=== PATIENT | male | born 1960 | race Hispanic/Latino ===

== ENCOUNTER 2018-07-27 14:13 | Emergency (ER) | payer MEDICAID ==
[2018-07-27 14:39] VITALS: BP 114/72
--- NOTE | 2018-07-27 20:50 | Emergency Department Report ---
ED Rash HPI - HPI Chief Complaint: Skin Rash Stated Complaint: SKIN INFECTION Time Seen by Provider: 07/27/18 20:43 Duration: 2 Days Location: Chest, Abdomen, Upper Extremities Suspected Cause: Unknown Rash Symptoms: Yes Itching, Yes Blistering, No Facial Swelling, No Tongue/Oral Swelling, No Breathing Difficulties, No Choking Sensation, No Wheezing/Dyspnea, No Peeling, No Fever, No Lightheaded, No Malaise, No Myalgias Severity: mild ED Review of Systems ROS: Stated complaint: SKIN INFECTION Other details as noted in HPI Constitutional: denies: chills, fever Eyes: denies: eye pain, eye discharge, vision change ENT: denies: ear pain, throat pain Respiratory: denies: cough, shortness of breath, wheezing Cardiovascular: denies: chest pain, palpitations Endocrine: no symptoms reported Gastrointestinal: denies: abdominal pain, nausea, diarrhea Genitourinary: denies: urgency, dysuria Musculoskeletal: as per HPI Skin: as per HPI, rash (bilateral hands trunk and abdomen), pruritus. denies: lesions ED Past Medical Hx - Past Medical History Hx Hypertension: Yes (when in pain or detoxing, no meds) Hx Psychiatric Treatment: Yes (bipolar disorder, substance abuse, PTSD) Additional medical history: broken collar bones, broken ribs, RLS - Surgical History Hx Appendectomy: Yes Additional Surgical History: bilateral knees 06/2016 and 04/2016, left shoulder, lower back, left kidney, facial trauma - Social History Smoking Status: Current Every Day Smoker Substance Use Type: None - Medications Home Medications: Home Medications Medication Instructions Recorded Confirmed Last Taken Type Citalopram [celeXA] 20 mg PO QDAY 08/25/16 08/25/16 Unknown History Omeprazole Magnesium [PriLOSEC Otc] 40 mg PO QDAY 08/25/16 08/25/16 Unknown History Quetiapine Fumarate [SEROquel] 50 mg PO QHS 08/25/16 08/25/16 Unknown History Sulfamethoxazole/Trimethoprim 1 each PO BID 10 Days #20 tablet 07/27/18 Unknown Rx [Bactrim DS TAB] Triamcinolone Aceton 0.1% (Nf) 1 applic TP BID #1 tube 07/27/18 Unknown Rx [Kenalog (NF)] diphenhydrAMINE [Benadryl CAP] 25 mg PO Q6HR PRN #30 capsule 07/27/18 Unknown Rx Rash Exam - Exam General: Vital signs noted. No distress. Alert and acting appropriately. HEENT: No Periorbital Edema, No Conjuctival Injection, No Chemosis, No Perioral Edema, No Tongue Edema, No Uvular Edema, No Compromised Airway, No Drooling Lungs: Yes Good Air Exchange, Yes Retractions, No Wheezes, No Ronchi, No Stridor , No Cough, No Labored Respirations, No Use of Accessory Muscles, No Other Abnormal Lung Sounds Heart: Yes Regular, No Murmur Skin: Yes Urticarial Rash, Yes Maculopapular Rash, Yes Excoriations, Yes Erythema, Yes Encrustations, No Morbilliform rash, No Bulla(e), No Weeping, No Tenderness, No Edema, No Other Other: Positive: Abdomen Normal, Neurologic Normal, Musculoskeletal Normal ED Course Vital Signs 07/27/18 14:34 Temperature 98.4 F Pulse Rate 82 Respiratory 20 Rate Blood Pressure 114/72 O2 Sat by Pulse 95 Oximetry ED Medical Decision Making - Medical Decision Making Patient presents with an atopic dermatitis history of same is recurring over the last 4 years . Generally treated with triamcinolone ointment and Benadryl patient has primary care daughter is taking care of of rash and primary care however cannot see to next week patient is out of triamcinolone. I should say he plan refill triamcinolone ointment Benadryl when necessary itching Bactrim for minor abscess Decadron patient will follow with PCP in 2-3 days patient verbalizes understanding and agreement with same patient DC to home in stable condition at this Critical care attestation.: If time is entered above; I have spent that time in minutes in the direct care of this critically ill patient, excluding procedure time. ED Disposition Clinical Impression: Cellulitis of skin Atopic dermatitis Qualifiers: Atopic dermatitis type: atopic neurodermatitis Qualified Code(s): L20.81 - Atopic neurodermatitis Disposition: DC-01 TO HOME OR SELFCARE Is pt being admited?: No Does the pt Need Aspirin: No Condition: Stable Instructions: Eczema (ED), Cellulitis (ED), Contact Dermatitis (ED) Prescriptions: diphenhydrAMINE [Benadryl CAP] 25 mg PO Q6HR PRN #30 capsule PRN Reason: Itching Sulfamethoxazole/Trimethoprim [Bactrim DS TAB] 1 each PO BID 10 Days #20 tablet Triamcinolone Aceton 0.1% (Nf) [Kenalog (NF)] 1 applic TP BID #1 tube Referrals: PRIMARY CARE,MD [Primary Care Provider] - 3-5 Days Forms: Work/School Release Form(ED) Time of Disposition: 20:58
[2018-07-27] MEDS ORDERED: DELTASONE PO ONE (20:57)
[2018-07-27] MEDS ORDERED: BACTRIM DS PO ONE (20:57)
[2018-07-27] MEDS ORDERED: BANOPHEN PO ONE (20:57)
[2018-07-27] MEDS ORDERED: BENADRYL PO ONE ×2 (21:05→21:06)
== END 2018-07-27 21:10 | disposition home or self-care (01) ==
LOC: ED 14:13
DX: L20.9 Atopic dermatitis, unspecified (principal); I10 Essential (primary) hypertension; F31.9 Bipolar disorder, unspecified; F19.10 Other psychoactive substance abuse, uncomplicated; F43.10 Post-traumatic stress disorder, unspecified; F17.200 Nicotine dependence, unspecified, uncomplicated; Z90.49 Acquired absence of other specified parts of digestive tract
CPT/HCPCS: 99282; J7512

== ENCOUNTER 2018-11-18 11:54 | Emergency (ER) | payer MEDICAID ==
[2018-11-18 12:03] VITALS: BP 158/80
--- NOTE | 2018-11-18 12:16 | Emergency Department Report ---
ED Abdominal Pain HPI - General Chief Complaint: Abdominal Pain Stated Complaint: GALLSTONES/PAIN Time Seen by Provider: 11/18/18 12:08 Source: patient Mode of arrival: Ambulatory Limitations: No Limitations - History of Present Illness Initial Comments: Mr. Kenny is a 58-year-old male who comes to the ER with right upper quadrant pain. He states that he believes this is gallstones. He denies nausea vomiting diarrhea. Patient does have past medical history of hepatitis C. He denies alcohol use. He does smoke 2 packs per week. He denies being on any home medications at present. He is followed by the [facility] in [place] by Dr Conrad. Complaint: abdominal pain -: Sudden Location: diffuse, RUQ Migration to: no migration Consistency: constant Improves With: medication Worsens With: medication Associated Symptoms: denies: nausea, vomiting, diarrhea, fever, chills, constipation, dysuria, hematemesis, hematochezia, melena, hematuria, anorexia, syncope - Related Data Previous Rx's Medication Instructions Recorded Last Taken Type Triamcinolone Aceton 0.1% (Nf) 1 applic TP BID #1 tube 07/27/18 Unknown Rx [Kenalog (NF)] Benztropine Mesylate 2 mg PO QHS #30 tablet 09/01/18 Unknown Rx FLUoxetine HCL [Fluoxetine HCl] 60 mg PO DAILY #30 capsule 09/01/18 Unknown Rx Lactulose [Cephulac] 20 gm PO QDAY #30 oral.liqd 09/01/18 Unknown Rx Nadolol [Corgard] 20 mg PO QDAY #30 tablet 09/01/18 Unknown Rx Pantoprazole [Protonix TAB] 40 mg PO BID #60 tablet 09/01/18 Unknown Rx QUEtiapine [SEROquel] 400 mg PO QHS #30 tablet 09/01/18 Unknown Rx Allergies Allergy/AdvReac Type Severity Reaction Status Date / Time erythromycin base Allergy Unknown Verified 08/22/16 15:07 ED Review of Systems ROS: Stated complaint: GALLSTONES/PAIN Other details as noted in HPI Comment: All other systems reviewed and negative Constitutional: denies: chills, fever Eyes: denies: eye pain ENT: denies: ear pain Respiratory: denies: cough, orthopnea Cardiovascular: denies: chest pain, palpitations Endocrine: denies: excessive sweating, flushing Gastrointestinal: as per HPI, abdominal pain. denies: nausea, vomiting, diarrhea, constipation, hematemesis, melena, hematochezia Genitourinary: denies: urgency, dysuria Musculoskeletal: denies: back pain Skin: denies: rash, lesions Neurological: denies: headache, weakness Psychiatric: denies: anxiety, depression Hematological/Lymphatic: denies: easy bleeding ED Past Medical Hx - Past Medical History Hx Hypertension: Yes (when in pain or detoxing, no meds) Hx Liver Disease: Yes (Hep C) Hx Seizures: Yes Hx Psychiatric Treatment: Yes (bipolar disorder, substance abuse, PTSD) Hx Asthma: No Hx COPD: No Additional medical history: broken collar bones, broken ribs, RLS - Surgical History Hx Appendectomy: Yes Additional Surgical History: bilateral knees 06/2016 and 04/2016, left shoulder, lower back, left kidney, facial trauma,esophagus - Social History Smoking Status: Current Every Day Smoker Substance Use Type: None - Medications Home Medications: Home Medications Medication Instructions Recorded Confirmed Last Taken Type Triamcinolone Aceton 0.1% (Nf) 1 applic TP BID #1 tube 07/27/18 08/26/18 Unknown Rx [Kenalog (NF)] Benztropine Mesylate 2 mg PO QHS #30 tablet 09/01/18 Unknown Rx FLUoxetine HCL [Fluoxetine HCl] 60 mg PO DAILY #30 capsule 09/01/18 Unknown Rx Lactulose [Cephulac] 20 gm PO QDAY #30 oral.liqd 09/01/18 Unknown Rx Nadolol [Corgard] 20 mg PO QDAY #30 tablet 09/01/18 Unknown Rx Pantoprazole [Protonix TAB] 40 mg PO BID #60 tablet 09/01/18 Unknown Rx QUEtiapine [SEROquel] 400 mg PO QHS #30 tablet 09/01/18 Unknown Rx ED Physical Exam - General Limitations: No Limitations General appearance: alert - Head Head exam: Present: atraumatic - Eye Eye exam: Present: normal appearance, PERRL Pupils: Present: normal accommodation - ENT ENT exam: Present: normal exam - Neck Neck exam: Present: normal inspection - Respiratory Respiratory exam: Present: normal lung sounds bilaterally - Cardiovascular Cardiovascular Exam: Present: regular rate - GI/Abdominal GI/Abdominal exam: Present: soft, normal bowel sounds. Absent: tenderness - Rectal Rectal exam: Present: deferred - Extremities Exam Extremities exam: Present: normal inspection, full ROM - Back Exam Back exam: Present: normal inspection, full ROM. Absent: tenderness, CVA tenderness (R), CVA tenderness (L) - Neurological Exam Neurological exam: Present: alert, oriented X3 - Psychiatric Psychiatric exam: Present: normal affect, normal mood - Skin Skin exam: Present: warm, dry, intact. Absent: normal color, rash ED Course Vital Signs 11/18/18 11:58 Temperature 97.8 F Pulse Rate 89 Respiratory 20 Rate Blood Pressure 158/80 O2 Sat by Pulse 96 Oximetry - Reevaluation(s) Reevaluation #1: 11/18/18 13:15 home meds rifaximan spironaldactone benztropine prozac ED Medical Decision Making - Lab Data Result diagrams: 11/18/18 12:34 11/18/18 12:34 - Medical Decision Making NO EVIDENCE OF BILIARY OBSTRUCTION LFT NORMAL CR NORMAL WBC N FOR PT NO FEVER AMBULATORY TAKING PO MEDICATED WITH MOTRIN AND DC HOME INSTRUCTED TO FOLLOW UP WITH DR CONRAD Labs 11/18/18 11/18/18 11/18/18 12:09 12:34 12:34 WBC 4.4 L RBC 4.62 Hgb 12.7 Hct 38.5 MCV 83 L MCH 28 MCHC 33 RDW 16.5 H Seg Neutrophils % Data Warehouse Manager Sodium 134 L Potassium 3.7 Chloride 100.5 Carbon Dioxide 19 L Anion Gap 18 BUN 9 Creatinine 0.6 L Estimated GFR > 60 BUN/Creatinine Ratio 15 Glucose 182 H Calcium 8.5 Total Bilirubin 0.70 AST 25 ALT 21 Alkaline Phosphatase 127 Total Protein 6.9 Albumin 3.9 Albumin/Globulin Ratio 1.3 Lipase 17 Urine Color Kell Urine Turbidity Clear Urine pH 6.0 Ur Specific [place] 1.021 Urine Protein <15 mg/dl Urine Glucose (UA) Neg Urine Ketones Neg Urine Blood Neg Urine Nitrite Neg Urine Bilirubin Neg Urine Urobilinogen 2.0 Ur Leukocyte Esterase Neg Urine WBC (Auto) 2.0 Urine RBC (Auto) 2.0 U Epithel Cells (Auto) < 1.0 Urine Mucus Few - Differential Diagnosis ro pancreatitis/choleycystitis Critical care attestation.: If time is entered above; I have spent that time in minutes in the direct care of this critically ill patient, excluding procedure time. ED Disposition Clinical Impression: Chronic abdominal pain Disposition: DC TO HOME OR SELFCARE Is pt being admited?: No Does the pt Need Aspirin: No Condition: Stable Instructions: Abdominal Pain (ED) Additional Instructions: FOLLOW UP WITH DR CONRAD DIET INSTRUCTED LOW FAT MEDS PER ROUTINE HYDRATE WELL WITH WATER LIVER FUNCTION IS NORMAL TODAY NORMAL BILIRUBUIN TODAY Referrals: PRIMARY CAREMD [Referring] - 3-5 Days FERNANDO MENDOZA MD [Primary Care Provider] - 3-5 Days Time of Disposition: 13:16
[2018-11-18 12:28] LABS: Bilirubin,Urine NEG (Negative); Blood,Urine NEG (Negative); Color,Urine Amber (Yellow); Mucus,Urine FEW /HPF; Protein,Urine <15 mg/dL mg/dL (Negative)
[2018-11-18 12:49] LABS: Hematocrit 38.5 % (35.5-45.6); Hemoglobin 12.7 gm/dl (11.8-15.2); Mean Corpuscular HGB Conc 33 % (32-34); Mean Corpuscular Volume 83 fl (84-94); Red Blood Count 4.62 M/mm3 (3.65-5.03); Red Cell Distribution Width 16.5 % (13.2-15.2)
[2018-11-18] MEDS ORDERED: IBUPROFEN PO ONE (13:02)
[2018-11-18 13:09] LABS: Alanine Aminotransferase 21 units/L (7-56); Albumin 3.9 g/dL (3.9-5); BUN/Creatinine Ratio 15; Blood Urea Nitrogen 9 mg/dL (9-20); Calcium 8.5 mg/dL (8.4-10.2); Hemolysis Index 7
[2018-11-18 13:28] LABS: Anisocytosis 1+; Eosinophils % (Manual) 0 % (0.0-4.3); Platelet Estimate Consistent w Auto; Poikilocytosis 1+; Total Cells Counted 100
[2018-11-18 13:29] LABS: Platelet Count 92 K/mm3 (140-440)
== END 2018-11-18 13:48 | disposition home or self-care (01) ==
LOC: ED 11:54
DX: R10.11 Right upper quadrant pain (principal); G89.29 Other chronic pain; F17.210 Nicotine dependence, cigarettes, uncomplicated; I10 Essential (primary) hypertension; F31.9 Bipolar disorder, unspecified; F43.10 Post-traumatic stress disorder, unspecified; Z90.49 Acquired absence of other specified parts of digestive tract; Z96.653 Presence of artificial knee joint, bilateral; Z88.1 Allergy status to other antibiotic agents
CPT/HCPCS: 36415; 80053; 81001; 83690; 85007; 85025; 99283

== ENCOUNTER 2018-12-14 13:15 | Outpatient (CLI) | payer MEDICAID ==
--- NOTE | 2018-12-14 22:53 | XRay Report ---
FINAL REPORT EXAM: XR KNEE BILAT 3V HISTORY: PAIN TECHNIQUE: Three views of the bilateral knees, 6 views total PRIORS: None. FINDINGS: Right knee: There is a knee prosthesis in place. Alignment is anatomic. There is no evidence of hardw are complication or acute fracture. The soft tissues are unremarkable. Left knee: There is a knee prosthesis in place. Alignment is anatomic. There is no evidence of hardwa re complication or acute fracture. There is osteophyte formation of the posterior patella. The soft tissues are unremarkable. IMPRESSION: Bilateral knee prostheses. No evidence of hardware complication or acute fracture.
--- NOTE | 2018-12-14 23:53 | XRay Report ---
FINAL REPORT EXAM: XR SHOULDER 2+V LT HISTORY: PAIN TECHNIQUE: 4 views of the left shoulder PRIORS: None. FINDINGS: The glenohumeral and acromioclavicular joints are normally aligned. The bones are normally mineralize d. The soft tissues are unremarkable. IMPRESSION: Normal left shoulder.
== END 2018-12-14 13:16 | disposition home or self-care (01) ==
LOC: XRAY 13:15
PROVIDERS: ATTEND Physical Medicine & Rehabilitation
DX: M25.512 Pain in left shoulder (principal); M54.5 Low back pain; I10 Essential (primary) hypertension; Z96.651 Presence of right artificial knee joint; Z90.49 Acquired absence of other specified parts of digestive tract; Z87.891 Personal history of nicotine dependence

== ENCOUNTER 2019-01-12 09:03 | Day surgery (SDC) | payer MEDICAID ==
[~2019-01-12 09:03] MED LIST: NACL 0.9% 1000 ML 1,000 ML IV SCH
--- NOTE | 2019-01-12 10:57 | Anesthesia Day of Surgery ---
Anesthesia Day of Surgery - Day of Surgery Patient Examined: Yes Patient H&P Reviewed: Yes Patient is NPO: Yes
--- NOTE | 2019-01-12 10:57 | Anesthesia Consultation ---
Anesthesia Consult and Med Hx Date of service: 01/12/19 - Airway Anesthetic Teeth Evaluation: Edentulous ROM Head & Neck: Adequate Mental/Hyoid Distance: Adequate Mallampati Class: Class II Intubation Access Assessment: Probably Good - Pre-Operative Health Status ASA Pre-Surgery Classification: ASA4 Proposed Anesthetic Plan: MAC - Pulmonary Hx Smoking: Yes (smokes for 40 years) Hx Asthma: No Hx Respiratory Symptoms: No SOB: No COPD: No Hx Pneumonia: Yes - Cardiovascular System Hx Hypertension: Yes (when in pain or detoxing, no meds) - Central Nervous System Hx Seizures: Yes Hx Psychiatric Problems: Yes (anxiety/depression) - Gastrointestinal Hx Ulcer: Yes (GASTRIC) - Endocrine Hx Cirrhosis: Yes Hx Liver Disease: Yes (Hep C) - Other Systems Hx Alcohol Use: Yes Hx Substance Use: Yes (IV drug)
[2019-01-12] MEDS ORDERED: DIPRIVAN 10 MG/ML IV ONE ×2 (11:00→13:41)
--- NOTE | 2019-01-12 11:18 | Short Stay Summary ---
Short Stay Documentation Date of service: 01/12/19 Narrative H&P: The patient presents for EGD and possible banding of esophageal varices. He has cirrhosis secondary to ETOH and hep C and has a prior history of bleeding from esophageal varices. - History Past Medical History: GERD, hepatitis, liver disease (cirrhosis) Past Surgical History: Other (bilateral knee replacements) Social history: Lives alone, alcohol abuse (prior heavy ETOH use), IV drug use (prior IVDU) - Allergies and Medications Current Medications: Allergies erythromycin base Allergy (Verified 08/22/16 15:07) Unknown Home Medications Medication Instructions Recorded Confirmed Last Taken Type Omeprazole 40 mg PO DAILY 01/11/19 01/12/19 01/11/19 History Xifaxan 550 mg PO BID 01/11/19 01/12/19 01/11/19 History Claritin 1 tab PO DAILY 01/12/19 01/12/19 01/11/19 History Furosemide [Lasix TAB] 1 tab PO DAILY 01/12/19 01/12/19 01/11/19 History Percocet 7.5/325 mg 1 tab PO BID PRN 01/12/19 01/12/19 01/11/19 History Prozac 60 mg PO DAILY 01/12/19 01/12/19 01/11/19 History Vistaril 10 mg PO BID 01/12/19 01/12/19 01/11/19 History traMADol 2 mg PO BID 01/12/19 01/12/19 01/11/19 History Active Medications Sodium Chloride (Nacl 0.9% 1000 Ml) 1,000 mls @ 50 mls/hr IV DIRECT OMER Last Admin: 01/12/19 09:45 Dose: 50 mls/hr Documented by: - Physical exam General appearance: no acute distress, well-nourished Integumentary: no rash, no growths, no abnormal pigmentation HEENT: Atraumatic, PERRLA, EOMI, Mucous membr. moist/pink Lungs: Clear to auscultation, Normal air movement Breasts: deferred Heart: Regular rate, Normal S1, Normal S2, No murmurs Gastrointestinal: normoactive bowel sounds, no tenderness, no distended, no masses, no guarding, no organomegaly, no obese, other (1 plus ascites. ballotable liver) Male Genitourinary: deferred Rectal Exam: deferred Extremities: no ischemia, pulses intact, pulses symmetrical, No edema, normal temperature, normal color, Full ROM Neurological: Normal gait, Normal speech, Strength at 5/5 X4 ext, Normal tone, Sensation intact, Cranial nerves 3-12 NL - Brief post op/procedure progress note Date of procedure: 01/12/19 Findings: see dictated report Estimated blood loss: none Pathology: none Condition: stable - Disposition Condition at discharge: Good Disposition: DC-01 TO HOME OR SELFCARE - Discharge Diagnoses (1) Cirrhosis of liver with ascites Status: Acute (2) Esophageal varices Status: Acute (3) Hepatitis C Status: Acute (4) History of hepatitis Status: Acute Short Stay Discharge Plan Activity: other (no driving for 24 hours) Weight Bearing Status: Full Weight Bearing Diet: other (soft mechanical diet for 24 hours) Follow up with: FERNANDO MENDOZA MD [Primary Care Provider] - 7 Days
--- NOTE | 2019-01-12 11:24 | Operative Report ---
Operative Report Operative Report: Date of procedure: 01/12/2019 Procedure: Esophagogastroduodenoscopy with banding 4 of esophageal varices. Preprocedure diagnosis: History of esophageal varices with bleeding in the past. Now for surveillance study. Post procedure diagnosis: 3+ esophageal varices. Mild portal hypertension gastropathy without discrete gastric varices. Endoscopist: Dr. Johnson Anesthesia: Monitored anesthesia care per anesthesia department Medications: Propofol per anesthesia Estimated blood loss: 0 After careful discussion of the nature and purpose of the procedure as well as details the technique risks benefits and alternatives consent was obtained. The patient was placed in the left lateral decubitus position and medicated per anesthesia. The tip of the Sonalight EQ 570 video scope was passed per orum under direct vision into the esophagus and advanced into the stomach and descending duodenum. The descending duodenum the duodenal bulb and pylorus were symmetrical and normal. The scope was withdrawn into the stomach and the stomach then gently insufflated with air. The antrum was normal. The stomach was further insufflated and the scope was then retroflexed and partially withdrawn. The cardia and fundus revealed mild portal hypertension gastropathy without discrete varices. The body of the stomach was within normal limits and easily distensible.The scope was then withdrawn in the forward position. The esophagogastric junction was at 40 cm. 3+ esophageal varices are present in the distal third. There were no stigmata of recent bleeding. The scope was then withdrawn and the banding device loaded. The scope was reintroduced by mouth under direct vision into the esophagus and advanced distally. 4 bands were placed in a circumferential fashion in the distal 5 cm of the esophagus. No bleeding was encountered. The procedure was was well tolerated and the patient was observed in recovery. Impressions: 3+ distal esophageal varices. Status post banding 4. Mild portal hypertension gastropathy without discrete gastric varices. Plan: We will start beta toy therapy. Repeat EGD and possible banding in 2- 3 months until varices are obliterated.. Electronically signed: Leoncio Johnson MD
[2019-01-12 12:52] VITALS: BP 109/56
== END 2019-01-12 09:04 | disposition home or self-care (01) ==
LOC: GIO 09:03
PROVIDERS: ATTEND Internal Medicine Gastroenterology
DX: I85.00 Esophageal varices without bleeding (principal); K76.6 Portal hypertension; K31.89 Other diseases of stomach and duodenum; F17.210 Nicotine dependence, cigarettes, uncomplicated; I10 Essential (primary) hypertension; F33.9 Major depressive disorder, recurrent, unspecified; F41.9 Anxiety disorder, unspecified; M19.90 Unspecified osteoarthritis, unspecified site; Z96.653 Presence of artificial knee joint, bilateral; Z72.89 Other problems related to lifestyle; Z98.890 Other specified postprocedural states; Z79.899 Other long term (current) drug therapy; Z86.19 Personal history of other infectious and parasitic diseases; Z90.49 Acquired absence of other specified parts of digestive tract; Z88.8 Allergy status to other drugs, medicaments and biological substances
CPT/HCPCS: 43244; J2704; J7030

== ENCOUNTER 2019-02-12 12:07 | Emergency (ER) | payer MEDICAID ==
--- NOTE | 2019-02-12 13:18 | Emergency Department Report ---
ED General Adult HPI - General Chief complaint: Weakness Stated complaint: WEAKNESS/SOB Time Seen by Provider: 02/12/19 12:35 Source: patient, EMS Mode of arrival: Stretcher Limitations: No Limitations - History of Present Illness Initial comments: 58-year-old male in with a past medical history of hypertension, hepatitis C, bipolar disorder, polysubstance abuse, PTSD, and bleeding esophageal varices requiring banding presents to the hospital from [facility] with complaints of rash. Patient states he is easily bruising and has bruising all over his extremities with pruritus. He denies melena, hematochezia, or hematemesis. He states he was admitted here 01/12/2019. Among his discharge medications included Xifaxan and nadolol. Patient has a couple tablets of Xifaxan left and is out of nadolol. He stresses concerns that his insurance might not cover additional Xifaxan refills and knees might need all. He was unable to be seen by his GI doctor Dr. Montez because his appointment was canceled because Dr. Montez was sick. Severity scale (0 -10): 0 - Related Data Home Medications Medication Instructions Recorded Confirmed Last Taken Omeprazole 40 mg PO DAILY 01/11/19 01/12/19 01/11/19 Xifaxan 550 mg PO BID 01/11/19 01/12/19 01/11/19 Claritin 1 tab PO DAILY 01/12/19 01/12/19 01/11/19 Furosemide [Lasix TAB] 1 tab PO DAILY 01/12/19 01/12/19 01/11/19 Percocet 7.5/325 mg 1 tab PO BID PRN 01/12/19 01/12/19 01/11/19 Prozac 60 mg PO DAILY 01/12/19 01/12/19 01/11/19 Vistaril 10 mg PO BID 01/12/19 01/12/19 01/11/19 traMADol 2 mg PO BID 01/12/19 01/12/19 01/11/19 Allergies Allergy/AdvReac Type Severity Reaction Status Date / Time erythromycin base Allergy Unknown Verified 08/22/16 15:07 ED Review of Systems ROS: Stated complaint: WEAKNESS/SOB Other details as noted in HPI Comment: All other systems reviewed and negative ED Past Medical Hx - Past Medical History Hx Hypertension: Yes (when in pain or detoxing, no meds) Hx GERD: Yes Hx Liver Disease: Yes (Hep C) Hx Arthritis: Yes Hx Seizures: Yes Hx Psychiatric Treatment: Yes (bipolar disorder, substance abuse, PTSD) Hx Asthma: No Hx COPD: No Additional medical history: broken collar bones, broken ribs, RLS - Surgical History Hx Appendectomy: Yes Additional Surgical History: bilateral knees 06/2016 and 04/2016, left shoulder, lower back, left kidney, facial trauma,esophagus - Social History Smoking Status: Current Every Day Smoker Substance Use Type: Prescribed - Medications Home Medications: Home Medications Medication Instructions Recorded Confirmed Last Taken Type Omeprazole 40 mg PO DAILY 01/11/19 01/12/19 01/11/19 History Xifaxan 550 mg PO BID 01/11/19 01/12/19 01/11/19 History Claritin 1 tab PO DAILY 01/12/19 01/12/19 01/11/19 History Furosemide [Lasix TAB] 1 tab PO DAILY 01/12/19 01/12/19 01/11/19 History Percocet 7.5/325 mg 1 tab PO BID PRN 01/12/19 01/12/19 01/11/19 History Prozac 60 mg PO DAILY 01/12/19 01/12/19 01/11/19 History Vistaril 10 mg PO BID 01/12/19 01/12/19 01/11/19 History traMADol 2 mg PO BID 01/12/19 01/12/19 01/11/19 History ED Physical Exam - General Limitations: No Limitations - Other Other exam information: General: No limitations, patient is alert in no acute distress Head exam: Atraumatic, normocephalic Eyes exam: Normal appearance ENT: Moist mucous membrane Neck exam: Normal inspection, full range of motion, no meningismus nontender Respiratory exam: Clear to auscultation bilateral, no wheezes, rales, crackles Cardiovascular: Normal rate and rhythm, normal heart sounds Abdomen: Soft, nondistended, and nontender, with normal bowel sounds, no rebound, or guarding Extremity: Full range of motion normal inspection no deformity Back: Normal Inspection, full range of motion, no tenderness Neurologic: Alert, oriented x3, cranial nerves intact, no motor or sensory deficit Psychiatric: normal affect, normal mood Skin: Patient has generalized bruising to extremities that is nonblanching. No warmth or erythema. Generalized pruritus noted ED Course Vital Signs 02/12/19 02/12/19 13:00 13:18 Temperature 98.4 F Pulse Rate 74 Respiratory 13 13 Rate Blood Pressure 137/61 [Right] O2 Sat by Pulse 96 95 Oximetry - Consultations Consultation #1: 02/12/19 14:46 case d/w Dr Worthington stone pol[facility] GI for Dr Montez, will review pt's med record and call in appropriate meds to his pharmacy. ED Medical Decision Making - Lab Data Result diagrams: 02/12/19 13:01 02/12/19 13:01 Lab Results 02/12/19 02/12/19 02/12/19 Range/Units 13:01 13:01 13:01 WBC 16.5 H (4.5-11.0) K/mm3 RBC 4.66 (3.65-5.03) M/mm3 Hgb 12.6 (11.8-15.2) gm/dl Hct 37.8 (35.5-45.6) % MCV 81 L (84-94) fl MCH 27 L (28-32) pg MCHC 33 (32-34) % RDW 16.0 H (13.2-15.2) % Plt Count 161 (140-440) K/mm3 Lymph % (Auto) 8.9 L (13.4-35.0) % [place] % (Auto) 12.3 H (0.0-7.3) % Eos % (Auto) 0.2 (0.0-4.3) % Baso % (Auto) 0.3 (0.0-1.8) % Lymph # 1.5 (1.2-5.4) K/mm3 [place] # 2.0 H (0.0-0.8) K/mm3 Eos # 0.0 (0.0-0.4) K/mm3 Baso # 0.0 (0.0-0.1) K/mm3 Seg Neutrophils % 78.3 H (40.0-70.0) % Seg Neutrophils # 12.9 H (1.8-7.7) K/mm3 PT 15.7 H (12.2-14.9) Sec. INR 1.17 H (0.87-1.13) APTT 32.4 (24.2-36.6) Sec. Sodium 134 L (137-145) mmol/L Potassium 4.2 (3.6-5.0) mmol/L Chloride 100.0 (98-107) mmol/L Carbon Dioxide 21 L (22-30) mmol/L Anion Gap 17 mmol/L BUN 23 H (9-20) mg/dL Creatinine 0.8 (0.8-1.5) mg/dL Estimated GFR > 60 ml/min BUN/Creatinine Ratio 29 % Glucose 99 (75-100) mg/dL Calcium 9.0 (8.4-10.2) mg/dL Total Bilirubin 0.90 (0.1-1.2) mg/dL AST 41 H (5-40) units/L ALT 36 (7-56) units/L Alkaline Phosphatase 134 H (35-129) units/L Ammonia (25-60) umol/L Total Protein 6.9 (6.3-8.2) g/dL Albumin 3.8 L (3.9-5) g/dL Albumin/Globulin Ratio 1.2 % Urine Color (Yellow) Urine Turbidity (Clear) Urine pH (5.0-7.0) Ur Specific [place] (1.003-1.030) Urine Protein (Negative) mg/dL Urine Glucose (UA) (Negative) mg/dL Urine Ketones (Negative) mg/dL Urine Blood (Negative) Urine Nitrite (Negative) Urine Bilirubin (Negative) Urine Urobilinogen (<2.0) mg/dL Ur Leukocyte Esterase (Negative) Urine WBC (Auto) (0.0-6.0) /HPF Urine RBC (Auto) (0.0-6.0) /HPF U Epithel Cells (Auto) (0-13.0) /HPF Urine Mucus /HPF 02/12/19 02/12/19 Range/Units 13:01 14:34 WBC (4.5-11.0) K/mm3 RBC (3.65-5.03) M/mm3 Hgb (11.8-15.2) gm/dl Hct (35.5-45.6) % MCV (84-94) fl MCH (28-32) pg MCHC (32-34) % RDW (13.2-15.2) % Plt Count (140-440) K/mm3 Lymph % (Auto) (13.4-35.0) % [place] % (Auto) (0.0-7.3) % Eos % (Auto) (0.0-4.3) % Baso % (Auto) (0.0-1.8) % Lymph # (1.2-5.4) K/mm3 [place] # (0.0-0.8) K/mm3 Eos # (0.0-0.4) K/mm3 Baso # (0.0-0.1) K/mm3 Seg Neutrophils % (40.0-70.0) % Seg Neutrophils # (1.8-7.7) K/mm3 PT (12.2-14.9) Sec. INR (0.87-1.13) APTT (24.2-36.6) Sec. Sodium (137-145) mmol/L Potassium (3.6-5.0) mmol/L Chloride (98-107) mmol/L Carbon Dioxide (22-30) mmol/L Anion Gap mmol/L BUN (9-20) mg/dL Creatinine (0.8-1.5) mg/dL Estimated GFR ml/min BUN/Creatinine Ratio % Glucose (75-100) mg/dL Calcium (8.4-10.2) mg/dL Total Bilirubin (0.1-1.2) mg/dL AST (5-40) units/L ALT (7-56) units/L Alkaline Phosphatase (35-129) units/L Ammonia 74.0 H (25-60) umol/L Total Protein (6.3-8.2) g/dL Albumin (3.9-5) g/dL Albumin/Globulin Ratio % Urine Color Yellow (Yellow) Urine Turbidity Clear (Clear) Urine pH 5.0 (5.0-7.0) Ur Specific [place] 1.029 (1.003-1.030) Urine Protein <15 mg/dl (Negative) mg/dL Urine Glucose (UA) Neg (Negative) mg/dL Urine Ketones Neg (Negative) mg/dL Urine Blood Neg (Negative) Urine Nitrite Neg (Negative) Urine Bilirubin Neg (Negative) Urine Urobilinogen < 2.0 (<2.0) mg/dL Ur Leukocyte Esterase Neg (Negative) Urine WBC (Auto) < 1.0 (0.0-6.0) /HPF Urine RBC (Auto) 2.0 (0.0-6.0) /HPF U Epithel Cells (Auto) < 1.0 (0-13.0) /HPF Urine Mucus Few /HPF - Radiology Data Radiology results: report reviewed ROUTINE CHEST, TWO VIEWS: HISTORY: Leukocytosis. The trachea, heart, mediastinal contour, lung campo and bony thorax are unremarkable. Patchy infiltrate in the lingula has resolved since 08/30/18. IMPRESSION: Unremarkable chest x-ray. - Medical Decision Making Patient complains of bruises or rash. No significant coagulopathy or anemia noted. Platelet count normal. Patient does present with a mild leukocytosis without identifiable source of fever or infectious symptoms. Chest x-ray and urine unremarkable. Patient is stable in the ED without distress. Patient did receive a dose of lactulose for mild ammonia elevation. Case discussed with GI who will review patient's Manzon: Needed prescriptions. - Differential Diagnosis thrombocytopenia, coagulopathy, infection, elevated bilirubin, allergic emma Critical Care Time: No Critical care attestation.: If time is entered above; I have spent that time in minutes in the direct care of this critically ill patient, excluding procedure time. ED Disposition Clinical Impression: Hepatitis C, Ecchymosis, Increased ammonia level, Liver cirrhosis Disposition: - TO HOME OR SELFCARE Is pt being admited?: No Does the pt Need Aspirin: No Condition: Stable Instructions: Cirrhosis (ED), Viral Hepatitis C (ED), Contusion in Adults (ED) Additional Instructions: Take the medication as prescribed. Follow up with your doctor or the clinic/doctor provided. Return if symptoms worsen as indicated by your discharge instructions. Your case was discussed with Dr. Worthignton one of Dr Abdul's partners. He will call in your appropriate medication to your pharmacy and recommends rescheduling of your appointment. Referrals: ALEKSANDRA CORBIN MD [Primary Care Provider] - 3-5 Days YONY MONTEZ MD [Staff Physician] - 3-5 Days Time of Disposition: 14:53
[2019-02-12 13:20] LABS: Basophils % (Auto) 0.3 % (0.0-1.8); Eosinophils % (Auto) 0.2 % (0.0-4.3); Hematocrit 37.8 % (35.5-45.6); Hemoglobin 12.6 gm/dl (11.8-15.2); Lymphocytes # (Auto) 1.5 K/mm3 (1.2-5.4); Lymphocytes % (Auto) 8.9 % (13.4-35.0); Mean Corpuscular HGB Conc 33 % (32-34); Mean Corpuscular Volume 81 fl (84-94); Monocytes % (Auto) 12.3 % (0.0-7.3); Platelet Count 161 K/mm3 (140-440); Red Blood Count 4.66 M/mm3 (3.65-5.03)
[2019-02-12 13:30] LABS: INR 1.17 (0.87-1.13)
[2019-02-12 13:31] LABS: Partial Thromboplastin Time 32.4 Sec. (24.2-36.6)
[2019-02-12 13:36] LABS: Alanine Aminotransferase 36 units/L (7-56); Albumin 3.8 g/dL (3.9-5); BUN/Creatinine Ratio 29; Blood Urea Nitrogen 23 mg/dL (9-20); Hemolysis Index 4
[2019-02-12] MEDS ORDERED: CEPHULAC PO ONE (13:54)
--- NOTE | 2019-02-12 14:15 | XRay Report ---
ROUTINE CHEST, TWO VIEWS: HISTORY: Leukocytosis. The trachea, heart, mediastinal contour, lung campo and bony thorax are unremarkable. Patchy infiltrate in the lingula has resolved since 08/30/18. IMPRESSION: Unremarkable chest x-ray.
[2019-02-12 14:46] LABS: Bilirubin,Urine NEG (Negative); Blood,Urine NEG (Negative); Color,Urine Yellow (Yellow); Mucus,Urine FEW /HPF; Protein,Urine <15 mg/dL mg/dL (Negative); Urobilinogen,Urine < 2.0 mg/dL (<2.0); WBC,Urine < 1.0 /HPF (0.0-6.0)
[2019-02-12 15:19] VITALS: BP 111/54
== END 2019-02-12 15:25 | disposition home or self-care (01) ==
LOC: ED 12:07
DX: K74.60 Unspecified cirrhosis of liver (principal); K75.9 Inflammatory liver disease, unspecified; E72.20 Disorder of urea cycle metabolism, unspecified; S80.12XA Contusion of left lower leg, initial encounter; S80.11XA Contusion of right lower leg, initial encounter; S60.222A Contusion of left hand, initial encounter; S60.221A Contusion of right hand, initial encounter; I10 Essential (primary) hypertension; K21.9 Gastro-esophageal reflux disease without esophagitis; M19.90 Unspecified osteoarthritis, unspecified site; F17.200 Nicotine dependence, unspecified, uncomplicated; Z88.1 Allergy status to other antibiotic agents; X58.XXXA Exposure to other specified factors, initial encounter; Y93.89 Activity, other specified; Y92.89 Other specified places as the place of occurrence of the external cause; Y99.8 Other external cause status
CPT/HCPCS: 36415; 71046; 80053; 81001; 82140; 85025; 85610; 85730; 99284

== ENCOUNTER 2019-03-05 13:50 | Emergency (ER) | payer MEDICAID ==
[2019-03-05 14:07] VITALS: BP 121/59
--- NOTE | 2019-03-05 14:08 | Emergency Department Report ---
Blank Doc - Documentation Documentation: 58 y/o male comes in for left knee pain. Denies any injury. Knee replacement 3 years ago at [facility], [place]. Started having pain last night.
--- NOTE | 2019-03-05 15:53 | XRay Report ---
XRAY LEFT KNEE 3 VIEWS: 03/05/19 13:50:00 CLINICAL: Pain and swelling. COMPARISON: 12/14/18 FINDINGS: Status post total joint replacement with normal appearance of the prosthesis. No apparent loosening of the prosthesis. Opacification of the suprapatellar bursa has developed since the last exam. There is also moderate soft tissue edema of the anterior lower thigh. No soft tissue air. IMPRESSION: New inflammatory changes in the anterior soft tissues of the distal thigh. Suspect a large joint effusion. No evidence of gas producing infection. Normal appearance of the joint prosthesis.
--- NOTE | 2019-03-05 16:21 | Emergency Department Report ---
ED Extremity Problem HPI - General Chief complaint: Extremity Problem,Nontraumatic Stated complaint: L KNEE PAIN Time Seen by Provider: 03/05/19 15:04 Source: patient, EMS Mode of arrival: Wheelchair Limitations: Physical Limitation - History of Present Illness Initial comments: 58 y/o male comes in for left knee pain. Knee replacement 3 years ago at [facility]. Started having pain last night after nearly falling on that side. No fever, chills or night sweats. Has not taking any medications for symptoms. MD Complaint: extremity pain - Related Data Home Medications Medication Instructions Recorded Confirmed Last Taken Omeprazole 40 mg PO DAILY 01/11/19 01/12/19 01/11/19 Xifaxan 550 mg PO BID 01/11/19 01/12/19 01/11/19 Claritin 1 tab PO DAILY 01/12/19 01/12/19 01/11/19 Furosemide [Lasix TAB] 1 tab PO DAILY 01/12/19 01/12/19 01/11/19 Percocet 7.5/325 mg 1 tab PO BID PRN 01/12/19 01/12/19 01/11/19 Prozac 60 mg PO DAILY 01/12/19 01/12/19 01/11/19 Vistaril 10 mg PO BID 01/12/19 01/12/19 01/11/19 traMADol 2 mg PO BID 01/12/19 01/12/19 01/11/19 Allergies Allergy/AdvReac Type Severity Reaction Status Date / Time erythromycin base Allergy Unknown Verified 08/22/16 15:07 ED Review of Systems ROS: Stated complaint: L KNEE PAIN Other details as noted in HPI Comment: All other systems reviewed and negative Respiratory: denies: cough, orthopnea Musculoskeletal: joint swelling ED Past Medical Hx - Past Medical History Hx Hypertension: Yes (when in pain or detoxing, no meds) Hx GERD: Yes Hx Liver Disease: Yes (Hep C) Hx Arthritis: Yes Hx Seizures: Yes Hx Psychiatric Treatment: Yes (bipolar disorder, substance abuse, PTSD) Hx Asthma: No Hx COPD: No Additional medical history: broken collar bones, broken ribs, RLS - Surgical History Hx Appendectomy: Yes Additional Surgical History: bilateral knees 06/2016 and 04/2016, left shoulder, lower back, left kidney, facial trauma,esophagus - Social History Smoking Status: Current Every Day Smoker Substance Use Type: None - Medications Home Medications: Home Medications Medication Instructions Recorded Confirmed Last Taken Type Omeprazole 40 mg PO DAILY 01/11/19 01/12/19 01/11/19 History Xifaxan 550 mg PO BID 01/11/19 01/12/19 01/11/19 History Claritin 1 tab PO DAILY 01/12/19 01/12/19 01/11/19 History Furosemide [Lasix TAB] 1 tab PO DAILY 01/12/19 01/12/19 01/11/19 History Percocet 7.5/325 mg 1 tab PO BID PRN 01/12/19 01/12/19 01/11/19 History Prozac 60 mg PO DAILY 01/12/19 01/12/19 01/11/19 History Vistaril 10 mg PO BID 01/12/19 01/12/19 01/11/19 History traMADol 2 mg PO BID 01/12/19 01/12/19 01/11/19 History ED Physical Exam - General Limitations: Physical Limitation General appearance: alert, in no apparent distress - Head Head exam: Present: atraumatic, normocephalic - Eye Eye exam: Present: normal appearance, PERRL, EOMI Pupils: Present: normal accommodation - ENT ENT exam: Present: normal exam, normal orophraynx - Neck Neck exam: Present: normal inspection - Respiratory Respiratory exam: Present: normal lung sounds bilaterally - Cardiovascular Cardiovascular Exam: Present: regular rate, normal rhythm - GI/Abdominal GI/Abdominal exam: Present: soft - Extremities Exam Extremities exam: Present: joint swelling (left knee swelling, no redness, no warmth. No sign of septic joint.) ED Course Vital Signs 03/05/19 14:02 Temperature 98.6 F Pulse Rate 84 Respiratory 18 Rate Blood Pressure 121/59 O2 Sat by Pulse 95 Oximetry ED Medical Decision Making - Medical Decision Making Swelling likely due to the strain of almost falling, and catching himself on that side, already weaken knee. Effusion noted on x-ray, however no warmth, no fever, patient advised to follow-up with orthopedic. Return to ED if symptoms worsen. Critical care attestation.: If time is entered above; I have spent that time in minutes in the direct care of this critically ill patient, excluding procedure time. ED Disposition Clinical Impression: Knee pain, acute Qualifiers: Laterality: left Qualified Code(s): M25.562 - Pain in left knee Disposition: DC-01 TO HOME OR SELFCARE Is pt being admited?: No Does the pt Need Aspirin: No Condition: Stable Instructions: Knee Effusion (ED) Referrals: PRIMARY CARE, [Primary Care Provider] - 3-5 Days NIRALI MATHUR MD [Staff Physician] - 3-5 Days
== END 2019-03-05 16:31 | disposition home or self-care (01) ==
LOC: ED 13:50
DX: M25.562 Pain in left knee (principal); I10 Essential (primary) hypertension; K21.9 Gastro-esophageal reflux disease without esophagitis; M19.90 Unspecified osteoarthritis, unspecified site; F17.200 Nicotine dependence, unspecified, uncomplicated; Z86.19 Personal history of other infectious and parasitic diseases; Z88.1 Allergy status to other antibiotic agents; Z90.49 Acquired absence of other specified parts of digestive tract
CPT/HCPCS: 99284

== ENCOUNTER 2019-11-09 09:50 | Day surgery (SDC) | payer MEDICAID ==
[2019-11-09] MEDS ORDERED: SODIUM CHLORIDE 0.9% 1000 ML 1,000 ML IV SCH (10:00)
--- NOTE | 2019-11-09 10:49 | Anesthesia Consultation ---
Anesthesia Consult and Med Hx Date of service: 11/09/19 - Airway Anesthetic Teeth Evaluation: Dentures ROM Head & Neck: Adequate Mental/Hyoid Distance: Adequate Mallampati Class: Class II Intubation Access Assessment: Probably Good - Pulmonary Exam CTA: Yes - Cardiac Exam Cardiac Exam: RRR - Pre-Operative Health Status ASA Pre-Surgery Classification: ASA3 Proposed Anesthetic Plan: MAC - Pulmonary Hx Smoking: Yes (smokes for 40 years) Hx Asthma: No Hx Respiratory Symptoms: No SOB: No COPD: Yes Hx Pneumonia: Yes Hx Sleep Apnea: No - Cardiovascular System Hx Hypertension: Yes (when in pain or detoxing, no meds) - Central Nervous System Hx Seizures: Yes Hx Psychiatric Problems: Yes (anxiety/depression/Bipolar Disorder) - Gastrointestinal Hx Ulcer: Yes (GASTRIC) Hx Gastroesophageal Reflux Disease: Yes - Endocrine Hx Renal Disease: No Hx Cirrhosis: Yes Hx Liver Disease: Yes (Hep C) - Hematic Hx Anemia: Yes - Other Systems Hx Alcohol Use: Yes Hx Substance Use: Yes (IV drug) Hx Obesity: Yes (BMI 38) - Additional Comments Anesthesia Medical History Comments: Denies anesthesia related complications
--- NOTE | 2019-11-09 10:50 | Anesthesia Day of Surgery ---
Anesthesia Day of Surgery - Day of Surgery Patient Examined: Yes Patient H&P Reviewed: Yes Patient is NPO: Yes
[2019-11-09] MEDS ORDERED: fentaNYL 100 MCG/2 ML INJ ONE (10:53)
[2019-11-09] MEDS ORDERED: PROPOFOL 200 MG/20 ML VIAL IV ONE ×2 (10:53→11:11)
--- NOTE | 2019-11-09 11:23 | Short Stay Summary ---
Short Stay Documentation Date of service: 11/09/19 Narrative H&P: The patient presents for EGD and possible banding due to history of esophageal varices. He has cirrhosis due to hepatitis C. Previous history of large esophageal varices banded in 2019. - History Past Medical History: other (cirrhosis due to HCV, anxiety and depression, ) Past Surgical History: Other (History of banding of esophageal varices) Social history: no significant social history, other (On opiate maintenance), no smoking, no alcohol abuse - Allergies and Medications Current Medications: Allergies erythromycin base Allergy (Verified 08/22/16 15:07) Unknown Home Medications Medication Instructions Recorded Confirmed Last Taken Type Omeprazole 40 mg PO DAILY 01/11/19 01/12/19 01/11/19 History Xifaxan 550 mg PO BID 01/11/19 01/12/19 01/11/19 History Claritin 1 tab PO DAILY 01/12/19 01/12/19 01/11/19 History Furosemide [Lasix TAB] 1 tab PO DAILY 01/12/19 01/12/19 01/11/19 History Percocet 7.5/325 mg 1 tab PO BID PRN 01/12/19 01/12/19 01/11/19 History Prozac 60 mg PO DAILY 01/12/19 01/12/19 01/11/19 History Vistaril 10 mg PO BID 01/12/19 01/12/19 01/11/19 History traMADol 2 mg PO BID 01/12/19 01/12/19 01/11/19 History - Physical exam General appearance: no acute distress, well-nourished Integumentary: no rash, no growths, no abnormal pigmentation HEENT: Atraumatic, PERRLA, EOMI, Mucous membr. moist/pink Lungs: Clear to auscultation Breasts: deferred Heart: Regular rate, Normal S1, Normal S2, No murmurs Gastrointestinal: normoactive bowel sounds, no tenderness, no distended, no masses, no guarding Male Genitourinary: deferred Rectal Exam: deferred Extremities: no ischemia, pulses intact, pulses symmetrical, No edema, normal temperature, normal color, Full ROM Neurological: Normal gait, Normal speech, Strength at 5/5 X4 ext, Normal tone, Sensation intact, Cranial nerves 3-12 NL, Reflexes 2+ - Brief post op/procedure progress note Date of procedure: 11/09/19 Findings: see dictation Pathology: none Condition: stable - Disposition Condition at discharge: Good Disposition: DC-01 TO HOME OR SELFCARE - Discharge Diagnoses (1) Esophageal varices Status: Acute (2) Hepatitis C Status: Acute Short Stay Discharge Plan Activity: other (no driving for 24 hours) Weight Bearing Status: Weight Bear as Tolerated Diet: regular Follow up with: DAMARIS MARIA MD [Primary Care Provider] - 7 Days
--- NOTE | 2019-11-09 11:32 | Operative Report ---
Operative Report Operative Report: Date of procedure: 11/09/2019 Procedure: Esophagogastroduodenoscopy Preprocedure diagnosis: History of large esophageal varices requiring banding in January 2019 now for follow-up study to re-band as needed. Post procedure diagnosis: 0-1+ esophageal varices, not requiring banding. Retained food content suggesting gastroparesis Endoscopist: Dr. Johnson Anesthesia: Monitored anesthesia care per anesthesia department Medications: Propofol per anesthesia Estimated blood loss: 0 After careful discussion of the nature and purpose of the procedure as well as details the technique risks benefits and alternatives consent was obtained. The patient was placed in the left lateral decubitus position and medicated per anesthesia. The tip of the Olympus video scope was passed per orum under direct vision into the esophagus and advanced into the stomach and descending duodenum. The descending duodenum the duodenal bulb and pylorus were symmetrical and normal. The scope was withdrawn into the stomach and the stomach then gently insufflated with air. The antrum was normal. The stomach was further insufflated and the scope was then retroflexed and partially withdrawn. The cardia, fundus, and body of the stomach were within normal limits and easily distensible.there was some retained old food present on the greater curvature of the stomach suggesting gastroparesis. The scope was then withdrawn in the forward position. The esophagogastric junction was at 40 cm. The esophageal body feels some retained food particles and 0-1+ varices in the mid and distal esophagus which completely disappeared on insufflation of the esophagus. It was elected to do no banding at this time. Scattered food particles were also noted in the esophageal body suggesting dysmotility. The procedure was was well tolerated and the patient was observed in recovery. Impressions: 0-1+ esophageal varices. No banding performed. Small amount of retained food in the stomach and esophagus suggesting dysmotility, possibly gastroparesis due to opiates. Plan: Office follow-up in 3 months. Repeat EGD with possible banding in 1 year. Electronically signed: Leoncio Johnson MD
[2019-11-09] MEDS ORDERED: LIDOCAINE MPF (2%) 20 MG/1 ML VIAL 5 ML ONE (12:00)
[2019-11-09 12:41] VITALS: BP 102/52
== END 2019-11-09 09:51 | disposition home or self-care (01) ==
LOC: GIO 09:50
PROVIDERS: ATTEND Internal Medicine Gastroenterology
DX: I85.00 Esophageal varices without bleeding (principal); K74.60 Unspecified cirrhosis of liver; I10 Essential (primary) hypertension; K44.9 Diaphragmatic hernia without obstruction or gangrene; E66.9 Obesity, unspecified; M19.90 Unspecified osteoarthritis, unspecified site; F31.9 Bipolar disorder, unspecified; F17.210 Nicotine dependence, cigarettes, uncomplicated; F41.9 Anxiety disorder, unspecified; Z72.89 Other problems related to lifestyle; Z88.8 Allergy status to other drugs, medicaments and biological substances; Z79.899 Other long term (current) drug therapy; Z79.82 Long term (current) use of aspirin; Z86.19 Personal history of other infectious and parasitic diseases; Z68.38 Body mass index [BMI] 38.0-38.9, adult; Z90.49 Acquired absence of other specified parts of digestive tract; Z96.652 Presence of left artificial knee joint; Z98.890 Other specified postprocedural states; Z86.2 Personal history of diseases of the blood and blood-forming organs and certain disorders involving the immune mechanism
CPT/HCPCS: 43235; J2704; J3010; J7030

== ENCOUNTER 2021-08-14 09:00 | Day surgery (SDC) | payer MEDICAID ==
[~2021-08-14 09:00] MED LIST changes: -NACL 0.9% 1000 ML 1,000 ML IV SCH; +SODIUM CHLORIDE 0.9% 1000 ML 1,000 ML IV SCH
[2021-08-14] MEDS ORDERED: propofoL 200 MG/20 ML VIAL IV ONE ×2 (10:03→10:17)
[2021-08-14] MEDS ORDERED: LIDOCAINE MPF (2%) 20 MG/1 ML VIAL 5 ML ONE (10:03)
--- NOTE | 2021-08-14 10:29 | Short Stay Summary ---
Short Stay Documentation Date of service: 08/14/21 Narrative H&P: The patient presents for EGD with possible dilation due to progressive dysphagia to solid foods. He has a history of large esophageal varices, previously banded. - History Past Medical History: COPD, liver disease (Cirrhosis secondary to Hep C. ), other (History of PUD, hx of esophageal varices. Opiate dependence.) Past Surgical History: Other (Left AKA, shoulder surgery) Social history: single, Lives alone, other (Opiate dependence history. On methadone maintenance) - Allergies and Medications Current Medications: Allergies erythromycin base Allergy (Verified 08/22/16 15:07) Unknown Home Medications Medication Instructions Recorded Confirmed Last Taken Type Prozac 40 mg PO DAILY 01/12/19 11/09/19 11/09/19 08:00 History Vistaril 10 mg PO BID 01/12/19 11/09/19 11/08/19 08:00 History Albuterol Sulfate [Proventil Hfa] 90 mcg INHALATION QID 11/09/19 11/09/19 11/08/19 22:00 History Aspirin [Aspirin BABY CHEW TAB] 81 mg PO QDAY 11/09/19 11/09/19 11/06/19 08:00 History Docusate Sodium [Colace] 100 mg PO BID 11/09/19 11/09/19 11/08/19 08:00 History Furosemide [Lasix TAB] 40 mg PO QDAY 11/09/19 11/09/19 11/08/19 08:00 History Loratadine [Allergy Relief] 10 mg PO DAILY 11/09/19 11/09/19 11/08/19 08:00 History Melatonin [Melatonin 3MG TAB] 3 mg PO HS 11/09/19 11/09/19 11/08/19 22:00 History Morphine ER [Ms Contin ER] 30 mg PO BID 11/09/19 11/09/19 11/09/19 08:00 History Oxycodone HCl [oxyCODONE] 10 mg PO TID 11/09/19 11/09/19 11/09/19 05:00 History Pregabalin [Lyrica] 50 mg PO TID 11/09/19 11/09/19 11/09/19 05:00 History QUEtiapine [SEROquel] 25 mg PO 11/09/19 11/09/1920 22:00 History Rifaximin [Xifaxan] 550 mg PO BID 11/09/19 11/09/19 11/08/19 08:00 History SEROquel 25 mg PO HS 11/09/19 11/09/19 11/08/19 22:00 History Spironolactone [Aldactone] 100 mg PO QDAY 11/09/19 11/09/19 11/08/19 08:00 History buPROPion HCL [Bupropion HCl Sr] 150 mg PO DAILY 11/09/19 11/09/19 11/08/19 08:00 History hydrOXYzine PAMOATE [Vistaril] 25 mg PO BID 11/09/19 11/09/19 11/08/19 08:00 History nadoloL [Nadolol] 40 mg PO DAILY 11/09/19 11/09/19 11/08/19 08:00 History tiZANidine [Zanaflex 4mg TAB] 4 mg PO PRN 11/09/19 11/09/19 11/08/19 08:00 History Active Medications Sodium Chloride (Nacl 0.9% 1000 Ml) 1,000 mls @ 50 mls/hr IV DIRECT OMER - Physical exam General appearance: no acute distress, well-nourished, obese Integumentary: no rash, no growths, no abnormal pigmentation HEENT: Atraumatic, PERRLA, Mucous membr. moist/pink Lungs: Clear to auscultation, Normal air movement Heart: Regular rate, Normal S1, Normal S2, No murmurs, no Gallops Gastrointestinal: normoactive bowel sounds, no tenderness, no distended, no masses, no guarding, no organomegaly Male Genitourinary: deferred Rectal Exam: deferred Extremities: no ischemia, pulses intact, pulses symmetrical, No edema, normal temperature, normal color, abnormal (Left AKA) Neurological: Normal gait, Normal speech, Strength at 5/5 X4 ext, Normal tone, Sensation intact, Cranial nerves 3-12 NL - Brief post op/procedure progress note Date of procedure: 08/14/21 Findings: see dictated report Estimated blood loss: none Pathology: none Condition: stable - Disposition Condition at discharge: Good Disposition: 01 HOME / SELF CARE / HOMELESS - Discharge Diagnoses (1) Dysphagia Status: Acute (2) Cirrhosis of liver with ascites Status: Acute (3) Esophageal varices Status: Acute (4) Hepatitis C Status: Acute Short Stay Discharge Plan Activity: other (No driving for 24 hours.) Weight Bearing Status: Weight Bear as Tolerated Diet: other (Mechanical soft diet today, then advance as tolerated tomorrow) Follow up with: DAMARIS MARIA MD [Primary Care Provider] - 7 Days
--- NOTE | 2021-08-14 10:36 | Operative Report ---
Operative Report Operative Report: Date of procedure: 08/14/2021 Procedure: Esophagogastroduodenoscopy with balloon dilation from 15 to 18 mm Preprocedure diagnosis: Dysphagia to solid foods. History of esophageal varices and banding. Post procedure diagnosis: Schatzki's ring. 1-2+ varices in the distal esophagus. Endoscopist: Dr. Johnson Anesthesia: Monitored anesthesia care per anesthesia department Medications: Propofol per anesthesia Estimated blood loss: 0 After careful discussion of the nature and purpose of the procedure as well as details the technique risks benefits and alternatives consent was obtained. The patient was placed in the left lateral decubitus position and medicated per anesthesia. The tip of the iList EQ 570 video scope was passed per orum under direct vision into the esophagus and advanced into the stomach and descending duodenum. The descending duodenum the duodenal bulb and pylorus were symmetrical and normal. The scope was withdrawn into the stomach and the stomach then gently insufflated with air. The antrum was normal. The stomach was further insufflated and the scope was then retroflexed and partially withdrawn. The cardia, fundus, and body of the stomach were within normal limits and easily distensible and no varices were seen in the fundus. The scope was then withdrawn in the forward position. The esophagogastric junction was at 40 cm. A Schatzki's ring was present at the EG junction. The esophageal body revealed 1-2+ varices in the distal esophagus without stigmata of recent bleeding. Dilation was performed in light of the patient's symptoms. A [id number] 15 to 18 mm was utilized to dilate gradually over 15 minutes. The procedure was was well tolerated and the patient was observed in recovery. Impressions: Schatzki's ring. Status post dilation to 15 mm. Small esophageal varices. No gastric varices. Plan: Office follow-up in 3 to 4 months. Continue present therapy. Soft diet today. Redilate as needed. Electronically signed: Leoncio Johnson MD
--- NOTE | 2021-08-14 10:41 | Anesthesia Day of Surgery ---
Anesthesia Day of Surgery - Day of Surgery Patient Examined: Yes Patient H&P Reviewed: Yes Patient is NPO: Yes
--- NOTE | 2021-08-14 10:41 | Anesthesia Consultation ---
Anesthesia Consult and Med Hx Date of service: 08/14/21 - Airway Anesthetic Teeth Evaluation: Dentures ROM Head & Neck: Adequate Mental/Hyoid Distance: Adequate Mallampati Class: Class III Intubation Access Assessment: Possibly Difficult - Pre-Operative Health Status ASA Pre-Surgery Classification: ASA4 Proposed Anesthetic Plan: MAC - Pulmonary Hx Smoking: Yes (1/2 PPD x 40yrs) COPD: Yes Home Oxygen Therapy: Yes (2L NC prn (mostly at night)) - Cardiovascular System Hx Hypertension: No Hx Heart Attack/AMI: No Hx Percutaneous Transluminal Coronary Angioplasty (PTCA): No Hx Cardia Arrhythmia: No - Central Nervous System CVA: No Hx Psychiatric Problems: Yes (anxiety/depression) - Gastrointestinal Hx Gastroesophageal Reflux Disease: Yes - Endocrine Hx Renal Disease: No Hx Cirrhosis: Yes Hx Liver Disease: Yes (HCV) Hx Insulin Dependent Diabetes: No Hx Non-Insulin Dependent Diabetes: No Hx Thyroid Disease: No - Other Systems Hx Obesity: Yes (BMI 35) - Additional Comments Anesthesia Medical History Comments: No hx anesthetic complications.
--- NOTE | 2021-08-14 13:33 | Post Anesthesia Evaluation ---
- Post Anesthesia Evaluation Patient Participated: Yes Airway Patent: Yes Stable Respiratory Function: Yes Nausea/Vomiting: No Temp > 96.8F: Yes Pain Manageable: Yes Adequeate Hydration: Yes Anesthesia Complications: No
[2021-08-14 22:55] VITALS: BP 120/60
== END 2021-08-14 11:20 | disposition home or self-care (01) ==
LOC: GIO 09:00
PROVIDERS: ATTEND Internal Medicine Gastroenterology
DX: R13.10 Dysphagia, unspecified (principal); I85.00 Esophageal varices without bleeding; K74.60 Unspecified cirrhosis of liver; K31.89 Other diseases of stomach and duodenum; K21.9 Gastro-esophageal reflux disease without esophagitis; E66.9 Obesity, unspecified; F41.9 Anxiety disorder, unspecified; F32.9 Major depressive disorder, single episode, unspecified; J44.9 Chronic obstructive pulmonary disease, unspecified; M19.90 Unspecified osteoarthritis, unspecified site; F17.210 Nicotine dependence, cigarettes, uncomplicated; Z86.19 Personal history of other infectious and parasitic diseases; Z79.82 Long term (current) use of aspirin; Z79.899 Other long term (current) drug therapy; Z98.890 Other specified postprocedural states; Z88.1 Allergy status to other antibiotic agents
CPT/HCPCS: 43249; C1726; J2704; J7030

== ENCOUNTER 2022-02-26 08:43 | Outpatient (CLI) | payer MEDICAID ==
--- NOTE | 2022-02-26 10:17 | Ultrasound Report ---
LIMITED RUQ ABDOMINAL ULTRASOUND INDICATION: K74.60 CIRRHOSIS. COMPARISON: No relevant prior imaging study available. FINDINGS: Pancreas: Visualized portions show no significant abnormality. Abdominal Aorta: No significant abnormality. IVC: No significant abnormality. Liver: The liver measures 14.9 cm in length. The liver demonstrates a slightly heterogeneous echotex ture with subtle surface nodularity consistent with mild cirrhotic changes. No focal liver mass is de tected. Mild hepatopedal pulsatile flow in the main portal vein. Gallbladder: A few shadowing gallstones are identified in the gallbladder neck. No evidence for wall thickening, abnormal distention or pericholecystic fluid.. Bile ducts: No significant abnormality. Common bile duct measures 3 mm. Right kidney: No significant abnormality visualized. Free fluid: None. Additional Findings: None. IMPRESSION: Cholelithiasis but no evidence for acute cholecystitis. Mild cirrhotic changes are suspected in the liver. Signer Name: Zhou Albert Jr, MD Signed: 02/26/2022 10:13 AM Workstation Name: [id number]
== END 2022-02-26 08:44 | disposition home or self-care (01) ==
LOC: US 08:43
PROVIDERS: ATTEND Internal Medicine Gastroenterology
DX: K74.60 Unspecified cirrhosis of liver (principal); K80.20 Calculus of gallbladder without cholecystitis without obstruction
CPT/HCPCS: 76705

== ENCOUNTER 2022-02-27 10:40 | Outpatient (CLI) | payer MEDICAID ==
--- NOTE | 2022-02-27 12:41 | XRay Report ---
PELVIS AND HIPS 3 VIEWS INDICATION / CLINICAL INFORMATION: BILATERAL HIP PAIN M25.551 COMPARISON: None available. FINDINGS: BONES / JOINT(S): No acute fracture or subluxation. Mild joint space narrowing is noted at the hips s uperiorly consistent with mild osteoarthrosis. There is also mild arthritic change at the SI joints a nd pubic symphysis. SOFT TISSUES: No significant abnormality. ADDITIONAL FINDINGS: None. IMPRESSION: No acute findings. Signer Name: Luis Enrique Isabel MD Signed: 02/27/2022 12:37 PM Workstation Name: [id number]
== END 2022-02-27 10:41 | disposition home or self-care (01) ==
LOC: XRAY 10:40
PROVIDERS: ATTEND Nurse Practitioner Family
DX: M16.0 Bilateral primary osteoarthritis of hip (principal)
CPT/HCPCS: 73521